=== PATIENT | female | born 1995 | race Two or more races ===

== ENCOUNTER 2016-12-07 21:36 | Emergency (ER) | payer OTHER ==
[2016-12-07 22:12] VITALS: RESP 18; TEMP 97.8; O2SAT 99
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
[2016-12-08] MEDS ORDERED: cefTRIAXone 500 MG in Sodium Chloride 0.9% 50 ML IM STA (01:47)
[2016-12-08] MEDS ORDERED: cefTRIAXone 250 MG in Lidocaine Hydrochloride 0.9 ML IM SCH (02:00)
[2016-12-08 02:28] VITALS: BP 103/65; PULSE 93
== END 2016-12-08 02:27 | disposition home or self-care (01) ==
LOC: C.ER 21:36
DX: Z04.41 Encounter for examination and observation following alleged adult rape (principal)
CPT/HCPCS: 84703; 96372; 99285; J0696